=== PATIENT | female | born 1995 | race Caucasian/White ===

== ENCOUNTER 2022-03-17 08:30 | Outpatient (CLI) | payer BC, SELFPAY | END 2022-03-17 08:31 | disposition home or self-care (01) | LOC: AMB 03-19 09:33 | PROVIDERS: PCP Nurse Practitioner Family; Visit Provider Emergency Medicine | DX: R06.09 Other forms of dyspnea (principal) | CPT/HCPCS: A0425; A0427 ==

== ENCOUNTER 2022-03-17 09:15 | Emergency (ER) | payer BC, SELFPAY ==
[2022-03-17] VITALS (19 sets, daily range): BP systolic 102–125; BP diastolic 64–80; PULSE 64–76; RESP 20; TEMP 37.1; O2SAT 97–100
--- NOTE | 2022-03-17 09:47 | CRLHL7_ITS ---
For Patients: As a result of the Century Cures Act, medical imaging exams and procedure reports are released immediately into your electronic medical record. You may view this report before your referring provider. If you have questions, please contact your health care provider. INDICATION: Shortness of breath TECHNIQUE: Chest 1 view COMPARISON: None FINDINGS: Cardiovascular and mediastinum: Heart size and vasculature are normal in caliber and appearance. Lungs and pleural spaces: Lungs are clear. No sign of infiltrate or mass. No sign of pleural effusion. No pneumothorax. Bones and soft tissues: No significant findings. IMPRESSION: No acute findings. Dictated by Vern Das MD @ 03/17/2022 10:25:45 AM (Electronically Signed)
[2022-03-17 10:32] LABS: HCG Qualitative* Negative (Negative)
[2022-03-17 10:32] LABS: Basophils Absolute Auto 0.01 K/uL (0.00-0.30); Basophils Percent Auto 0.2 % (0.0-3.0); Eosinophils Absolute Auto 0.02 K/uL (0.00-0.50); Eosinophils Percent Auto 0.3 % (0.0-7.0); Hematocrit 40.3 % (33.0-51.0); Hemoglobin* 13.9 gm/dL (12.0-16.0); Immature Granulocytes Abs Auto 0.01 K/uL (0.00-0.30); Immature Granulocytes Pct Auto 0.2 %; Lymphocytes Absolute Auto 1.42 K/uL (0.90-2.90); Lymphocytes Percent Auto 21.8 % (20-44); Mean Corpuscular HGB Conc 35 gm/dL (32-36); Mean Corpuscular Hemoglobin 29 pg (26-34); Mean Corpuscular Volume 85 fL (80-100); Monocytes Percent Auto 7.1 % (0.0-11.0); Neutrophils Absolute Auto 4.59 K/uL (1.7-7.0); Neutrophils Percent Auto 70.4 % (42.0-72.0); Platelet Count* 172 K/uL (140-440); RDW Coefficient of Variation % 11.4 % (11.5-15.5); Red Blood Count 4.73 m/uL (4.00-5.20); White Blood Count* 6.51 K/uL (4.50-11.00)
[2022-03-17 10:35] LABS: Slide Review Reflex No
[2022-03-17 10:50] LABS: Chloride* 105 mmol/L (96-114); Potassium* 4.3 mmol/L (3.6-5.1); Sodium* 141 mmol/L (135-149)
[2022-03-17 10:52] LABS: Creatinine* 0.6 mg/dL (0.5-1.5); Estimated Glomerular Filt Rate 126 ml/min; INR 1.02 (0.91-1.10)
[2022-03-17 10:53] LABS: Blood Urea Nitrogen* 17 mg/dL (5-24); Calcium* 9.5 mg/dL (8.4-10.6); Carbon Dioxide* 29 mmol/L (20-32); Glucose* 98 mg/dL (60-115)
[2022-03-17 10:57] LABS: D Dimer Quantitative* < 0.27 ug/ml (0.00-0.50)
[2022-03-17 11:13] LABS: NT Pro B Type NatriureticPept* 51 pg/mL
--- NOTE | 2022-03-17 12:37 | ED.NURSE ---
respiratory support technician in room for Holter monitor setup.
--- NOTE | 2022-03-17 14:22 | ED_ITS ---
HPI - General Adult General Date Seen: 03/17/22 Chief complaint: Chest Pain Stated complaint: Heart issue Time Seen by Provider: 03/17/22 09:37 Source: patient, EMS, RN notes reviewed and old records reviewed Mode of arrival: EMS Limitations: no limitations History of Present Illness HPI narrative: Patient is a 26-year-old who arrives via EMS after having palpitations and near syncope while at work. She says that she was in a meeting, sitting calmly, when she developed sensation of heart pounding and racing, and feeling faint. Initially she did not tell me this, but it sounds as if she has had similar symptoms for quite some time, and has had at least some degree of workup for this previously. Initially, she told me that she had about 5 minutes of severe symptoms and then about 30 minutes before she felt back to normal. On EMS arrival, they noted normal vital signs and normal sinus rhythm on EKG. She did have T-wave inversions noted anteriorly, without previous EKG available for comparison. She has a history of pulmonary artery dilation, she tells me she has been followed at the [facility] and more recently [facility] for this. She has had multiple stress test, echo cardiograms, Holter monitor. She says she has a history of hypotension with exercise, but is able to exercise within reason without difficulty. She has never had syncope with exercise. She occasionally gets a sharp pain in her chest but today just had pain between her shoulder blades with this episode. That is now resolved. She denies any recent nausea or vomiting, fever, or other illness. No lower extremity swelling or pain. No history of PE or DVT. She does not take control pills. Here today with her . Related Data Home Medications Medication Instructions Recorded Confirmed No Known Home Medications 03/17/22 03/17/22 Allergies Allergy/AdvReac Type Severity Reaction Status Date / Time No Known Drug Allergies Allergy Verified 03/17/22 09:25 Review of Systems Status of ROS: Reports: 10 or more systems reviewed and unremarkable except as noted in History and below PFSH PFS Social History Smoking Status: Never smoker Do you use any of these nicotine containing products: None Second hand tobacco smoke exposure: No How often do you have a drink containing alcohol: monthly or less How often do you have six or more drinks on one occasion: Never AUDIT-C Alcohol total score: 1 Non-prescribed substance use: denies use Exam Narrative: Exam Narrative: Vital signs as noted above. In general, an alert, well-appearing patient. She is thin, breathing easily. Head: Normocephalic, atraumatic. Eyes: Pupils are equal reactive. Extraocular movements are full. Conjunctivae are normal. ENT: Mucous membranes are moist. Throat is normal. Neck: Supple without lymphadenopathy. Heart: Regular rate and rhythm. She has a diastolic murmur heard at the left sternal border. Lungs: Clear bilaterally. No increased work of breathing, crackles or wheezes. Abdomen: Soft and nontender. No organomegaly. Extremities: Well perfused. No edema. No calf tenderness. Pulses intact. Neurologic: Patient is alert and oriented to person and place. Speech is fluent. Face is symmetric. Moves all extremities equally. Affect: Normal. Skin: Warm and dry. Well perfused. Const: Vital Signs, click to edit/add: Vital Signs - 24 hr 03/17/22 09:17 03/17/22 09:38 03/17/22 09:45 Temperature 98.7 F Pulse Rate 70 72 Pulse Rate [Pulse Oximeter] 71 Respiratory Rate 20 Blood Pressure Blood Pressure [Le ft Upper Arm] 125/80 Pulse Oximetry 99 100 [facility] 03/17/22 10:00 03/17/22 10:01 03/17/22 10:15 Temperature Pulse Rate 69 75 70 Pulse Rate [Pulse Oximeter] Respiratory Rate Blood Pressure 106/70 Blood Pressure [Le ft Upper Arm] Pulse Oximetry 100 100 97 [facility] 03/17/22 10:30 03/17/22 10:32 03/17/22 10:33 Temperature Pulse Rate 67 65 68 Pulse Rate [Pulse Oximeter] Respiratory Rate Blood Pressure 117/78 Blood Pressure [Le ft Upper Arm] Pulse Oximetry 99 99 99 [facility] 03/17/22 10:45 03/17/22 11:00 03/17/22 11:02 Temperature Pulse Rate 65 76 65 Pulse Rate [Pulse Oximeter] Respiratory Rate Blood Pressure 108/65 Blood Pressure [Le ft Upper Arm] Pulse Oximetry 98 98 98 [facility] 03/17/22 11:15 03/17/22 11:30 03/17/22 11:32 Temperature Pulse Rate 64 66 66 Pulse Rate [Pulse Oximeter] Respiratory Rate Blood Pressure 102/64 Blood Pressure [Le ft Upper Arm] Pulse Oximetry 98 99 98 Oxygen Delivery Me thod 03/17/22 11:45 03/17/22 12:00 03/17/22 12:01 Temperature Pulse Rate 73 65 69 Pulse Rate [Pulse Oximeter] Respiratory Rate Blood Pressure 108/69 Blood Pressure [Le ft Upper Arm] Pulse Oximetry 98 98 98 Oxygen Delivery Me thod 03/17/22 12:50 Temperature 98.7 F Pulse Rate Pulse Rate [Pulse Oximeter] 71 Respiratory Rate 20 Blood Pressure Blood Pressure [Le ft Upper Arm] 125/80 Pulse Oximetry Oxygen Delivery Me thod Documenting provider has reviewed patient's vital signs: yes Course Course Hospital Course: Patient was maintained on the monitor on O2. She had an EKG here which showed a normal sinus rhythm, ventricular rate of 71 beats per minute. She had T-wave inversions in V in V4, flat in V2. No significant change compared to the ambulance EKG. No ST segment elevation or depression. No previous EKG available for comparison. No arrhythmias noted on monitor here. She had a PA of the chest which by my review was unremarkable. Final radiology report likewise unremarkable. Point of care troponin was 0. Metabolic panel showed normal electrolytes, BUN and creatinine. BNP was 51. test was negative. CBC showed a white count of 6.5, hemoglobin of 13.9. D-dimer was less than 0.27. INR was 1. I did speak with the research laboratory manager on-call at [facility], Dr. Cardozo. He says that she recently had an extensive workup there which was unremarkable. He did not feel that her underlying pulmonary stenosis and resultant pulmonary artery dilation put her at any increased risk for malignant arrhythmias or supraventricular tachycardia for that matter. He does feel it is reasonable to let her go home. I had her set up for a Holter monitor. In talking with her a little more after her workup here, she expresses frustration that no one can figure out what this is. It sounds like this actually has been ongoing for quite some time and she probably has been seen for these same kind of symptoms in the past. She says that she had left a message for [facility] about this sensation of feeling her heart pounding and lightheadedness in the past couple of weeks and had not heard back. For now I have recommended that she complete the Holter and follow up with Lisa, if they feel that it would be best for her to follow back up with [facility] they can discuss that with her. In the meantime, if she were to have syncope I would recommend return to the emergency department. Otherwise, outpatient follow-up as planned. Vital Signs Vital signs: Initial Vital Signs Temperature 98.7 F 03/17/22 09:17 Temperature Source Temporal Artery Scan 03/17/22 09:17 Pulse Rate 71 03/17/22 09:17 Pulse Rhythm 03/17/22 09:17 Respiratory Rate 20 03/17/22 09:17 Blood Pressure 125/80 03/17/22 09:17 Blood Pressure Mean 95 03/17/22 09:17 Blood Pressure Position Sitting 03/17/22 09:17 Pulse Oximetry 99 03/17/22 09:17 Oxygen Delivery Method 03/17/22 09:17 Vital Signs Temperature 98.7 F 03/17/22 09:17 Pulse Rate 71 03/17/22 09:17 Respiratory Rate 20 03/17/22 09:17 Blood Pressure 125/80 03/17/22 09:17 Pulse Oximetry 99 03/17/22 09:17 Oxygen Delivery Method 03/17/22 09:17 Temperature 98.7 F 03/17/22 12:50 Pulse Rate 71 03/17/22 12:50 Respiratory Rate 20 03/17/22 12:50 Blood Pressure 125/80 03/17/22 12:50 Pulse Oximetry 98 03/17/22 12:01 Oxygen Delivery Method 03/17/22 09:17 Medical Decision Making Lab Data Labs: Lab Results 03/17/22 03/17/22 03/17/22 Range/Units 09:20 10:15 10:15 WBC (4.50-11.00) K/uL RBC (4.00-5.20) m/uL Hgb (12.0-16.0) gm/dL Hct (33.0-51.0) % MCV (80-100) fL MCH (26-34) pg MCHC (32-36) gm/dL RDW Coeff of Sav (11.5-15.5) % Plt Count (140-440) K/uL Neut % (Auto) (42.0-72.0) % Lymph % (Auto) (20-44) % [place] % (Auto) (0.0-11.0) % Eos % (Auto) (0.0-7.0) % Baso % (Auto) (0.0-3.0) % Neut # (Auto) (1.7-7.0) K/uL Lymph # (Auto) (0.90-2.90) K/uL [place] # (Auto) (0.00-0.90) K/UL Eos # (Auto) (0.00-0.50) K/uL Baso # (Auto) (0.00-0.30) K/uL INR (0.91-1.10) D-Dimer Quant (PE/DVT) < 0.27 (0.00-0.50) ug/ml Sodium 141 (135-149) mmol/L Potassium 4.3 (3.6-5.1) mmol/L Chloride 105 (96-114) mmol/L Carbon Dioxide 29 (20-32) mmol/L BUN 17 (5-24) mg/dL Creatinine 0.6 (0.5-1.5) mg/dL Estimated Creat Clear 35.30 Estimated GFR 126 ml/min Glucose 98 (60-115) mg/dL Calcium 9.5 (8.4-10.6) mg/dL NT-Pro-B Natriuret Pep 51 pg/mL HCG, Qual Negative (Negative) POC Troponin I (0.01-0.04) ng/ml 03/17/22 03/17/22 03/17/22 Range/Units 10:15 10:17 10:30 WBC 6.51 (4.50-11.00) K/uL RBC 4.73 (4.00-5.20) m/uL Hgb 13.9 (12.0-16.0) gm/dL Hct 40.3 (33.0-51.0) % MCV 85 (80-100) fL MCH 29 (26-34) pg MCHC 35 (32-36) gm/dL RDW Coeff of Sav 11.4 L (11.5-15.5) % Plt Count 172 (140-440) K/uL Neut % (Auto) 70.4 (42.0-72.0) % Lymph % (Auto) 21.8 (20-44) % [place] % (Auto) 7.1 (0.0-11.0) % Eos % (Auto) 0.3 (0.0-7.0) % Baso % (Auto) 0.2 (0.0-3.0) % Neut # (Auto) 4.59 (1.7-7.0) K/uL Lymph # (Auto) 1.42 (0.90-2.90) K/uL [place] # (Auto) 0.50 (0.00-0.90) K/UL Eos # (Auto) 0.02 (0.00-0.50) K/uL Baso # (Auto) 0.01 (0.00-0.30) K/uL INR 1.02 (0.91-1.10) D-Dimer Quant (PE/DVT) (0.00-0.50) ug/ml Sodium (135-149) mmol/L Potassium (3.6-5.1) mmol/L Chloride (96-114) mmol/L Carbon Dioxide (20-32) mmol/L BUN (5-24) mg/dL Creatinine (0.5-1.5) mg/dL Estimated Creat Clear Estimated GFR ml/min Glucose (60-115) mg/dL Calcium (8.4-10.6) mg/dL NT-Pro-B Natriuret Pep pg/mL HCG, Qual (Negative) POC Troponin I 0.00 L (0.01-0.04) ng/ml Discharge Plan Discharge Clinical Impression: Palpitations, Near syncope Patient Disposition: Home, Self-Care Condition: Stable Instructions: Heart Palpitations (ED), Near Syncope (ED) Additional Instructions: Follow-up with primary care after Holter monitor. Return at any time for fainting, significant chest pain, shortness of breath, or other worsening. Prescriptions: No Action No Known Home Medications Follow Up/Referrals: Genie Serrano, GERMAIN, MARINE ELECTRICIAN APPRENTICE [Primary Care Provider] - Stand Alone Forms: [facility] Info Instructions
== END 2022-03-17 12:45 | disposition home or self-care (01) ==
PROVIDERS: Emergency Provider Emergency Medicine; PCP Nurse Practitioner Family
DX: R00.2 Palpitations (principal); R55 Syncope and collapse
CPT/HCPCS: 36415; 71045; 80048; 83880; 84484; 84703; 85025; 85379; 85610; 93005; 93225; 93226; 94761; 99284; 99285

== ENCOUNTER 2022-04-21 07:21 | Outpatient (CLI) | payer BC, SELFPAY ==
--- NOTE | 2022-04-21 07:15 | CRLHL7_ITS ---
For Patients: As a result of the Century Cures Act, medical imaging exams and procedure reports are released immediately into your electronic medical record. You may view this report before your referring provider. If you have questions, please contact your health care provider. INDICATION: Female infertility COMPARISON: none TECHNIQUE: 2D krishnamurthy scale and color Doppler images were acquired of the pelvis using a transabdominal and transvaginal approach. FINDINGS: Sonographic images demonstrate a normal size and smooth outer contour of the uterus. Uterus measures cm in length by cm in AP diameter by cm in transverse dimension. The myometrium has a normal uniform echotexture. The endometrial lining measures 13 mm in composite thickness. 5 x 5 x 7 millimeter cervical nabothian cyst is present. The right ovary measures 3.3 x 1.8 x 1.6 cm in size and the left ovary measures 3.6 x 2.2 x 1.8 cm. The ovaries demonstrate normal arterial and venous blood flow on color Doppler analysis. There are no suspicious fluid collections within the cul-de-sac. IMPRESSION: Endometrial thickness 13 millimeters. No endometrial fluid or uterine fibroid. Normal ovaries. Normal ovarian follicles are present. Dictated by Vern Das MD @ 04/21/2022 10:16:27 AM (Electronically Signed)
== END 2022-04-21 07:22 | disposition home or self-care (01) ==
LOC: US 07:24
PROVIDERS: PCP Nurse Practitioner Family; Visit Provider Nurse Practitioner Family
DX: N97.9 Female infertility, unspecified (principal); R93.89 Abnormal findings on diagnostic imaging of other specified body structures
CPT/HCPCS: 76830; 76856

== ENCOUNTER 2022-05-11 14:05 | Emergency (ER) | payer BC, SELFPAY ==
[2022-05-11] VITALS (11 sets, daily range): BP systolic 93–116; BP diastolic 54–73; PULSE 61–75; RESP 18; TEMP 36.8; O2SAT 96–100; BMI 20.5
--- NOTE | 2022-05-11 14:20 | ED.NAVMDI ---
HPI - Nausea/Vomiting/Diarrhea General Time Seen by Provider: 14:20 Date Seen: 05/11/22 Chief complaint: Nausea/Vomiting Stated complaint: Vomiting, 6 weeks Time Seen by Provider: 05/11/22 14:20 Source: patient and RN notes reviewed Mode of arrival: ambulatory Limitations: no limitations History of Present Illness HPI Narrative: Patient is a very pleasant 26-year-old at approximately 6 weeks of based on LMP who comes to the emergency room with vomiting and diarrhea. Patient notes that she has been feeling very well and has not had any problems with morning sickness. She states she started vomiting early this morning and has continued throughout the day. She has been unable to keep any fluids or food down. She has also had diarrhea with this. 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 She is otherwise healthy and denies a fever cough or belly pain. She does states that she had been experiencing cramping in the lower pelvis earlier in the week but that has since stopped. She denies any vaginal bleeding. She has not had any dysuria or hematuria. Patient has not yet had her OB check. She states that is with Dr. Steele on June 03. Associated nausea: Yes Related Data Home Medications Medication Instructions Recorded Confirmed No Known Home Medications 03/17/22 03/17/22 Allergies Allergy/AdvReac Type Severity Reaction Status Date / Time No Known Drug Allergies Allergy Verified 03/17/22 09:25 Review of Systems Status of ROS: Reports: 10 or more systems reviewed and unremarkable except as noted in History and below Const: Denies: fever or chills ENMT: Denies: throat pain Cardio: Denies: chest pain, swelling of feet/ankles or shortness of breath with exertion Resp: Denies: shortness of breath or cough GI: Reports: nausea, vomiting and diarrhea; Denies: abdominal pain : Denies: painful urination Musculo: Denies: back pain Neuro: Denies: headache PFSH PFSH Social History Smoking Status: Never smoker Do you use any of these nicotine containing products: None Second hand tobacco smoke exposure: No How often do you have a drink containing alcohol: monthly or less How often do you have six or more drinks on one occasion: Never AUDIT-C Alcohol total score: 1 Non-prescribed substance use: denies use Exam Narrative: Exam Narrative: Alert and oriented. Nontoxic in appearance. External ears eyes nose clear. Oral cavity with tacky mucous membranes. Heart with regular rate and rhythm and lungs are clear bilaterally. Abdomen soft nontender Lower extremities upper extremities and moving without difficulty. Const: Vital Signs, click to edit/add: Vital Signs - 24 hr 05/11/22 14:15 05/11/22 15:14 05/11/22 15:15 Temperature 98.3 F Pulse Rate 61 64 Pulse Rate [Pulse Oximeter] 72 Respiratory Rate 18 Blood Pressure Blood Pressure [Ri ght Upper Arm] 116/73 Pulse Oximetry 100 100 100 Oxygen Delivery Me thod Room Air 05/11/22 15:30 05/11/22 15:32 05/11/22 15:45 Temperature Pulse Rate 64 63 67 Pulse Rate [Pulse Oximeter] Respiratory Rate Blood Pressure 97/58 L Blood Pressure [Ri ght Upper Arm] Pulse Oximetry 100 100 100 Oxygen Delivery Me thod 05/11/22 16:00 05/11/22 16:02 05/11/22 16:15 Temperature Pulse Rate 65 62 65 Pulse Rate [Pulse Oximeter] Respiratory Rate Blood Pressure 94/54 L Blood Pressure [Ri ght Upper Arm] Pulse Oximetry 100 96 100 Oxygen Delivery Me thod 05/11/22 16:30 05/11/22 16:32 Temperature Pulse Rate 75 69 Pulse Rate [Pulse Oximeter] Respiratory Rate Blood Pressure 93/56 L Blood Pressure [Ri ght Upper Arm] Pulse Oximetry 100 100 Oxygen Delivery Me thod Documenting provider has reviewed patient's vital signs: yes Course Course Hospital Course: At this time will place IV and give 2 L normal saline and Zofran 4 mg IV. Differential diagnosis does include morning sickness or hyper emesis however, with the diarrhea we cannot exclude other causes such as viral gastroenteritis, urinary tract infection. Will collect a urine, CBC and comprehensive panel and quantitative hCG as a baseline. Vital Signs Vital signs: Initial Vital Signs Temperature 98.3 F 05/11/22 14:15 Temperature Source Temporal Artery Scan 05/11/22 14:15 Pulse Rate 72 05/11/22 14:15 Respiratory Rate 18 05/11/22 14:15 Blood Pressure 116/73 05/11/22 14:15 Blood Pressure Mean 87 05/11/22 14:15 Blood Pressure Position Sitting 05/11/22 14:15 Pulse Oximetry 100 05/11/22 14:15 Vital Signs Temperature 98.3 F 05/11/22 14:15 Pulse Rate 72 05/11/22 14:15 Respiratory Rate 18 05/11/22 14:15 Blood Pressure 116/73 05/11/22 14:15 Pulse Oximetry 100 05/11/22 14:15 Temperature 98.3 F 05/11/22 14:15 Pulse Rate 69 05/11/22 16:32 Respiratory Rate 18 05/11/22 14:15 Blood Pressure 93/56 L 05/11/22 16:32 Pulse Oximetry 100 05/11/22 16:32 Oxygen Delivery Method 05/11/22 15:14 MDM - Nausea/Vomiting/Diarrhea MDM Narrative Medical decision making narrative: 1. Vomiting and diarrhea -I am wondering if this is more viral rather than related. Patient has had ongoing vomiting since early this morning. 3+ urinary ketones but reassuring white count and CRP is normal. Isolated elevation of total bilirubin to 2.0 but no other LFTs appear to be of it affected. 2 L of normal saline given as well as Zofran 4 mg IV. Patient noted to be feeling better and able to tolerate p.o.. Patient discharged home with Zofran. 2. -patient had some cramping earlier in the week but no cramping to today. No vaginal bleeding. HCG quantitative today 5315.90 3. Disposition-home at this time. Return for worsening symptoms and as needed. Medical Records Attestation: I reviewed the patient's medical records. Lab Data Attestation: I reviewed the patient's lab results. Labs: Lab Results 05/11/22 05/11/22 05/11/22 Range/Units 14:50 15:00 15:00 WBC 8.74 (4.50-11.00) K/uL RBC 5.04 (4.00-5.20) m/uL Hgb 14.8 (12.0-16.0) gm/dL Hct 43.3 (33.0-51.0) % MCV 86 (80-100) fL MCH 29 (26-34) pg MCHC 34 (32-36) gm/dL RDW Coeff of Sav 11.7 (11.5-15.5) % Plt Count 148 (140-440) K/uL Neut % (Auto) 92.0 H (42.0-72.0) % Lymph % (Auto) 5.0 L (20-44) % [place] % (Auto) 2.7 (0.0-11.0) % Eos % (Auto) 0.1 (0.0-7.0) % Baso % (Auto) 0.1 (0.0-3.0) % Neut # (Auto) 8.00 H (1.7-7.0) K/uL Lymph # (Auto) 0.40 L (0.90-2.90) K/uL [place] # (Auto) 0.20 (0.00-0.90) K/UL Eos # (Auto) 0.01 (0.00-0.50) K/uL Baso # (Auto) 0.01 (0.00-0.30) K/uL Sodium 137 (135-149) mmol/L Potassium 4.1 (3.6-5.1) mmol/L Chloride 104 (96-114) mmol/L Carbon Dioxide 24 (20-32) mmol/L BUN 13 (5-24) mg/dL Creatinine 0.5 (0.5-1.5) mg/dL Estimated Creat Clear 163.38 Estimated GFR 132 ml/min Glucose 97 (60-115) mg/dL Calcium 9.2 (8.4-10.6) mg/dL Total Bilirubin 2.0 H (0.1-1.5) mg/dL AST 25 (12-35) U/L ALT 21 (4-35) U/L Alkaline Phosphatase 56 (40-150) U/L Total Protein 8.4 H (6.0-8.3) g/dL Albumin 4.8 (3.3-5.0) g/dL HCG, Quant 5315.90 mIU/mL Urine Color Yellow (Yellow) Urine Appearance Clear (Clear) Urine pH 5.5 (5.0-8.5) Ur Specific [place] >= 1.030 (1.000-1.030) Urine Protein 1+ A (Negative) Urine Glucose (UA) Negative (Negative) Urine Ketones 3+ A (Negative) Urine Blood Negative (Negative) Urine Nitrite Negative (Negative) Urine Bilirubin Negative (Negative) Urine Urobilinogen 0.2 (0.2-1.0) Ur Leukocyte Esterase Negative (Negative) Urine RBC 0-2 (0-2) Urine WBC 0-2 (0-5) Ur Squamous Epith Cells Few (None-Few) Amorphous Sediment Few A (None) Urine Bacteria Few A (None) Urine Mucus Few A (None) Discharge Plan Discharge Clinical Impression: Nausea vomiting and diarrhea, Early stage of Patient Disposition: Home, Self-Care Condition: Improved Additional Instructions: Zofran as needed for nausea. This will be given to you via [employer] machine. Push fluids as much as possible. Follow-up with primary MD for recheck. Return to the emergency room as needed. Prescriptions: No Action No Known Home Medications Follow Up/Referrals: Genie Serrano, GERMAIN, PIPE SUPERVISOR [Primary Care Provider] - Stand Alone Forms: [employer] Info Instructions
[2022-05-11 14:59] LABS: Appearance Urine Clear (Clear); Bilirubin Urine Negative (Negative); Blood Urine Negative (Negative); Color Urine Yellow (Yellow); Glucose Urine Negative (Negative); Ketones Urine 3+ (Negative); Leukocyte Esterase Urine Negative (Negative); Nitrite Urine Negative (Negative); Protein Urine 1+ (Negative); Specific Gravity Urine >= 1.030 (1.000-1.030); Urobilinogen Urine 0.2 (0.2-1.0); pH Urine 5.5 (5.0-8.5)
[2022-05-11] MEDS: ONDANSETRON 2 MG/ML inj 4 MG IVP (15:05)
[2022-05-11] MEDS: 0.9 % SODIUM CHLORIDE 1000 ml 1,000 ML IV ×2 (15:06→15:36)
[2022-05-11 15:14] LABS: Basophils Absolute Auto 0.01 K/uL (0.00-0.30); Basophils Percent Auto 0.1 % (0.0-3.0); Eosinophils Absolute Auto 0.01 K/uL (0.00-0.50); Eosinophils Percent Auto 0.1 % (0.0-7.0); Hematocrit 43.3 % (33.0-51.0); Hemoglobin* 14.8 gm/dL (12.0-16.0); Immature Granulocytes Abs Auto 0.01 K/uL (0.00-0.30); Immature Granulocytes Pct Auto 0.1 %; Mean Corpuscular HGB Conc 34 gm/dL (32-36); Mean Corpuscular Hemoglobin 29 pg (26-34); Mean Corpuscular Volume 86 fL (80-100); Monocytes Percent Auto 2.7 % (0.0-11.0); Platelet Count* 148 K/uL (140-440); RDW Coefficient of Variation % 11.7 % (11.5-15.5); Red Blood Count 5.04 m/uL (4.00-5.20); White Blood Count* 8.74 K/uL (4.50-11.00)
[2022-05-11 15:19] LABS: Slide Review Reflex No
[2022-05-11 15:22] LABS: Albumin* 4.8 g/dL (3.3-5.0); Chloride* 104 mmol/L (96-114); Potassium* 4.1 mmol/L (3.6-5.1); Sodium* 137 mmol/L (135-149)
[2022-05-11 15:24] LABS: RBC Urine 0-2 (0-2); WBC Urine 0-2 (0-5)
[2022-05-11 15:24] LABS: Creatinine* 0.5 mg/dL (0.5-1.5); Est. Creatinine Clearance* 163.38; Estimated Glomerular Filt Rate 132 ml/min
[2022-05-11 15:25] LABS: Alanine Aminotransferase* 21 U/L (4-35); Alkaline Phosphatase* 56 U/L (40-150); Aspartate Amino Transferase* 25 U/L (12-35); Blood Urea Nitrogen* 13 mg/dL (5-24); Calcium* 9.2 mg/dL (8.4-10.6); Carbon Dioxide* 24 mmol/L (20-32); Glucose* 97 mg/dL (60-115); Total Protein* 8.4 g/dL (6.0-8.3)
[2022-05-11 15:25] LABS: Amorphous Sediment Urine Few; Bacteria Urine Few; Mucus Urine Few; Squamous Epithelial Cell Urine Few (None-Few)
--- NOTE | 2022-05-11 15:46 | ED.NURSE ---
is getting 2nd liter. sprite and saltines given.
== END 2022-05-11 16:50 | disposition home or self-care (01) ==
PROVIDERS: Emergency Provider Family Medicine; PCP Nurse Practitioner Family
DX: O21.9 Vomiting of pregnancy, unspecified (principal)
CPT/HCPCS: 36415; 80053; 81001; 84702; 85025; 87086; 96361; 96374; 99283; 99284; J2405; J7030

== ENCOUNTER 2022-06-02 09:05 | Outpatient (CLI) | payer BC, SELFPAY ==
--- NOTE | 2022-06-02 09:15 | CRLHL7_ITS ---
For Patients: As a result of the Century Cures Act, medical imaging exams and procedure reports are released immediately into your electronic medical record. You may view this report before your referring provider. If you have questions, please contact your health care provider. INDICATION: First trimester scan, establish dates. COMPARISON: None. TECHNIQUE: Real-time krishnamurthy-scale imaging of the pelvis was performed. FINDINGS: Sonographic imaging demonstrates a single living intrauterine gestation. The embryo demonstrates a regular cardiac rate measuring 179-185 beats per minute. The embryo`s crown-rump length measurement of 1.9 cm corresponds to a gestational age of 8 weeks 3 days with a sonographic due date of 01/09/2023. There is a normal-appearing yolk sac. There are no gross abnormalities noted within the embryo at this early state of development. The gestational sac has a normal appearance. There is no evidence of a perigestational hemorrhage. The amount of fluid within the sac appears appropriate for gestational age. The cervix is closed. The myometrium appears normal. The ovaries are of normal size. Corpus luteal cyst left ovary. Moderate pelvic free fluid. IMPRESSION: Single living intrauterine with sonographic gestational age 8 weeks 3 days and sonographic due date 01/09/2023. Corpus luteal cyst left ovary measuring 2.4 cm. Moderate pelvic free fluid. Dictated by Vern Das MD @ 06/02/2022 10:47:59 AM (Electronically Signed)
== END 2022-06-02 09:06 | disposition home or self-care (01) ==
LOC: US 09:05
PROVIDERS: PCP Nurse Practitioner Family; Visit Provider Registered Nurse
DX: Z34.91 Encounter for supervision of normal pregnancy, unspecified, first trimester (principal); Z3A.09 9 weeks gestation of pregnancy
CPT/HCPCS: 76817; 86703; 86803; 86850; 86900; 86901; 87340

== ENCOUNTER 2022-06-02 10:14 | Outpatient (CLI) | payer BC, SELFPAY | END 2022-06-02 10:15 | disposition home or self-care (01) | PROVIDERS: PCP Nurse Practitioner Family; Visit Provider Advanced Practice Midwife | DX: Z34.91 Encounter for supervision of normal pregnancy, unspecified, first trimester (principal); Z3A.09 9 weeks gestation of pregnancy | CPT/HCPCS: 0353U; 86592; 86703; 86762; 86787; 86803; 86850; 86900; 86901; 87086; 87340 ==

== ENCOUNTER 2022-09-30 11:20 | Outpatient (CLI) | payer BC, SELFPAY ==
[2022-09-30 11:37] VITALS: BP 119/73; PULSE 74; PULSE 78; O2SAT 100
[2022-09-30 12:15] LABS: Appearance Urine Slightly Cloudy (Clear); Bilirubin Urine Negative (Negative); Blood Urine 3+ (Negative); Color Urine Yellow (Yellow); Glucose Urine Negative (Negative); Ketones Urine Negative (Negative); Leukocyte Esterase Urine Negative (Negative); Nitrite Urine Negative (Negative); Protein Urine Negative (Negative); Urobilinogen Urine 0.2 (0.2-1.0)
[2022-09-30 12:25] LABS: RBC Urine 25-50 (0-2); WBC Urine 0-2 (0-5)
--- NOTE | 2022-09-30 12:59 | P.OBLDTN_ITS ---
OB - Triage/Final Diagnosis Visit Information Date Seen: 09/30/22 Date of evaluation: 09/30/22 Narrative: The patient is a 27 year old 1 para 0 at 26.1 weeks gestation by LMP, who presents with pelvic discomfort. She went for a run this morning. After her run she had some cramping. This is something that has happened previously but has resolved after rest and hydration. It did not go away after 4-5 hours. She denies bleeding or leaking fluid and is appreciating good movement. She has had loose stools this morning and feels that the cramping could be bowel related. It is in her low abdomen in the middle and on both side. Denies in her back and feels that it is deeper in her abdomen and less at the surface. Her abdomen was palpated by the RN during some of this cramping and it palpated soft. She feels that she is well hydrated and is eating adequately. After a conversation, education and informed consent a SVE was performed. Her cervix was found to be mid position, closed, and ballotable. Encouraged her to continue to increase hydration and to be seen again with changes in her symptoms, concerns of dehydration or other concerns. A UA was sent and has RBCs but otherwise unremarkable. Will send for a culture. Evaluation Cervical dilation (cm): 0 Laboratory results: Laboratory Tests 09/30/22 09/30/22 Range/Units 12:45 12:09 Urine Color Yellow (Yellow) Urine Appearance Slightly Cloudy A (Clear) Urine pH 7.0 (5.0-8.5) Ur Specific [place] 1.020 (1.000-1.030) Urine Protein Negative (Negative) Urine Glucose (UA) Negative (Negative) Urine Ketones Negative (Negative) Urine Blood 3+ A (Negative) Urine Nitrite Negative (Negative) Urine Bilirubin Negative (Negative) Urine Urobilinogen 0.2 (0.2-1.0) Ur Leukocyte Esterase Negative (Negative) Urine RBC 25-50 A (0-2) Urine WBC 0-2 (0-5) Ur Squamous Epith Cells None (None-Few) Urine Bacteria None (None) Lab Acknowledgement Test Added Vital signs: Vital Signs - 24 hr 09/30/22 11:37 Pulse Rate 74 Blood Pressure 119/73 Pulse Oximetry 100 Fetus (Single) Heart Rate Baseline: 140 Sales Service Professional Variability: Moderate (6-25) Monitor Accelerations: Present Monitor Decelerations: None
--- NOTE | 2022-09-30 13:08 | PC.OBNST ---
NST Note NST Note Start: 09/30/22 11:40 Freq: ONCE Status: Active Protocol: Document 09/30/22 12:35 WK (Rec: 09/30/22 13:08 WK [id number]) NST Note 1 Para (# of births) 0 EDC 01/05/23 Gestational Age In Weeks & Days 26 Weeks & 1 Days Patient Presented with Complaint(s) of Contractions/cramping Appropriate for Gestational Age Yes RN Jessica RNC Date 09/30/22 Appropriate for Gestational Age Yes RN Bee RN Date 09/30/22 OB NST charge Yes Complete NST Note via Write Note Yes The provider's electronic signature indicates the NST is reactive/appropriate for gestational age. *Note to provider: If an addendum is required, open the patient's chart and click on the note under the Nurse/Allied Health tab.
== END 2022-09-30 12:35 | disposition home or self-care (01) ==
LOC: OB OUT 11:23 → OB 11:24
PROVIDERS: PCP Nurse Practitioner Family; Visit Provider Advanced Practice Midwife
DX: O47.02 False labor before 37 completed weeks of gestation, second trimester (principal); Z3A.26 26 weeks gestation of pregnancy
CPT/HCPCS: 59025; 81003; 81015; 87086; 99213

== ENCOUNTER 2022-10-14 09:33 | Outpatient (CLI) | payer BC, SELFPAY | END 2022-10-14 09:34 | disposition home or self-care (01) | LOC: NFLDREF 09:34 | PROVIDERS: PCP Nurse Practitioner Family; Visit Provider Advanced Practice Midwife | DX: Z34.93 Encounter for supervision of normal pregnancy, unspecified, third trimester (principal) | CPT/HCPCS: 86592; 86850; J2791 ==

== ENCOUNTER 2022-10-14 10:16 | Outpatient (CLI) | payer BC, SELFPAY ==
--- NOTE | 2022-10-14 10:45 | CRLHL7_ITS ---
For Patients: As a result of the Century Cures Act, medical imaging exams and procedure reports are released immediately into your electronic medical record. You may view this report before your referring provider. If you have questions, please contact your health care provider. INDICATION: Third trimester scan, evaluate growth. COMPARISON: 06.02.22 TECHNIQUE: Real time krishnamurthy scale imaging of the fetus was performed. FINDINGS: Sonographic imaging demonstrates a single living intrauterine gestation. Fetus demonstrates a regular cardiac rate of 139 beats per minute. Fetus has a vertex position. The placenta lies posterior. Amniotic fluid volume appears normal and there is a single deepest vertical pocket: 4.1 cm. The estimated weight is 1161gm which lies at the 32nd %. BPD 7th percentile. HC 3rd percentile. AC 65th percentile. FL 14th percentile. The HC/AC ratio measures 1.01 range (1.03-1.22). IMPRESSION: Sonographic gestational age 27 weeks 4 days as sonographic due date of 01/09/2023. Good correlation with dates. Estimated weight 32nd percentile. Abdominal circumference 65th percentile. Dictated by Vern Das MD @ 10/14/2022 12:17:25 PM (Electronically Signed)
== END 2022-10-14 10:17 | disposition home or self-care (01) ==
LOC: US 10:17
PROVIDERS: PCP Nurse Practitioner Family; Visit Provider Advanced Practice Midwife
DX: Z34.92 Encounter for supervision of normal pregnancy, unspecified, second trimester (principal); Z3A.27 27 weeks gestation of pregnancy
CPT/HCPCS: 76816; 86850; J2791

== ENCOUNTER 2022-11-11 07:04 | Outpatient (CLI) | payer BC, SELFPAY ==
--- NOTE | 2022-11-11 07:15 | CRLHL7_ITS ---
For Patients: As a result of the Century Cures Act, medical imaging exams and procedure reports are released immediately into your electronic medical record. You may view this report before your referring provider. If you have questions, please contact your health care provider. INDICATION: Third trimester scan, evaluate growth. measuring small for dates COMPARISON: 10/14/2022 TECHNIQUE: Real time krishnamurthy scale imaging of the fetus was performed. FINDINGS: Sonographic imaging demonstrates a single living intrauterine gestation. Fetus demonstrates a regular cardiac rate of 134 beats per minute. Fetus has a chris breech position. The placenta lies posteriorly. Amniotic fluid volume appears normal and there is a single deepest vertical pocket: 7.0 cm. The estimated weight is 1755gm which lies at the 18th %. On the prior OB ultrasound exam dated 10/14/2022 the estimated weight was at the 32nd%. BPD 14th percentile. HC 6th percentile. AC 29th percentile. FL 17th percentile. The HC/AC ratio measures 1.05 range (0.96-1.16). IMPRESSION: Sonographic gestational age 31 weeks 2 days and sonographic due date of 01/11/2023. Sonographic age is 6 days behind the clinical age. Estimated weight 18th percentile. Abdominal circumference 29th percentile. Dictated by Vern Das MD @ 11/11/2022 11:57:07 AM (Electronically Signed)
== END 2022-11-11 07:05 | disposition home or self-care (01) ==
LOC: US 07:04
PROVIDERS: PCP Nurse Practitioner Family; Visit Provider Advanced Practice Midwife
DX: Z34.03 Encounter for supervision of normal first pregnancy, third trimester (principal); O36.5930 Maternal care for other known or suspected poor fetal growth, third trimester, not applicable or unspecified; Z3A.31 31 weeks gestation of pregnancy
CPT/HCPCS: 76816

== ENCOUNTER 2022-12-09 13:56 | Outpatient (CLI) | payer BC, SELFPAY ==
--- NOTE | 2022-12-09 14:00 | CRLHL7_ITS ---
For Patients: As a result of the Cures Act, medical imaging exams and procedure reports are released immediately into your electronic medical record. You may view this report before your referring provider. If you have questions, please contact your health care provider. INDICATION: Uterine size-date discrepancy COMPARISON: 11/11/2022 TECHNIQUE: Real time krishnamurthy scale imaging of the fetus was performed. FINDINGS: Sonographic imaging demonstrates a single living intrauterine gestation. Fetus demonstrates a regular cardiac rate of 143 beats per minute. Fetus has a vertex position. The placenta lies left posterior. Amniotic fluid volume appears normal and there is a single deepest vertical pocket: 6.3 cm. The estimated weight is 2552gm which lies at the 21st %. On the prior OB ultrasound exam dated 11/11/2022 the estimated weight was at the 18th%. BPD 15th percentile. HC 4th percentile. AC 32nd percentile. FL 15th percentile. The HC/AC ratio measures 1.00 range (0.93-1.11). IMPRESSION: Sonographic gestational age 34 weeks 6 days and sonographic due date of 01/14/2023. Sonographic age is 9 days behind the clinical age. Estimated weight 21st percentile. Abdominal circumference 32nd percentile. Dictated by Vern Das MD @ 12/10/2022 11:17:17 AM (Electronically Signed)
== END 2022-12-09 13:57 | disposition home or self-care (01) ==
LOC: US 13:57
PROVIDERS: PCP Nurse Practitioner Family; Visit Provider Advanced Practice Midwife
DX: O36.5930 Maternal care for other known or suspected poor fetal growth, third trimester, not applicable or unspecified (principal); Z3A.34 34 weeks gestation of pregnancy
CPT/HCPCS: 76816; 87081; 87653

== ENCOUNTER 2022-12-24 16:41 | Outpatient (CLI) | payer BC, SELFPAY ==
[2022-12-24 16:55] VITALS: PULSE 73; O2SAT 98
[2022-12-24 17:01] VITALS: BP 116/79; PULSE 68
[2022-12-24 17:14] VITALS: RESP 16; TEMP 36.9
[2022-12-24 17:33] LABS: Amnisure Rom* Negative
--- NOTE | 2022-12-24 18:16 | PC.OBNST ---
NST Note NST Note Start: 12/24/22 16:48 Freq: ONCE Status: Active Protocol: Document 12/24/22 18:14 WK (Rec: 12/24/22 18:16 WK [id number]) NST Note 1 Para (# of births) 0 EDC 01/05/23 Gestational Age In Weeks & Days 38 Weeks & 2 Days Patient Presented with Complaint(s) of Leaking fluid Reactive Yes RN Jessica RNC Date 12/24/22 Reactive Yes RN Maru RNC Date 12/24/22 OB NST charge Yes Complete NST Note via Write Note Yes The provider's electronic signature indicates the NST is reactive/appropriate for gestational age. *Note to provider: If an addendum is required, open the patient's chart and click on the note under the Nurse/Allied Health tab.
== END 2022-12-24 17:59 | disposition home or self-care (01) ==
LOC: OB OUT 16:41 → OB 16:41
PROVIDERS: PCP Nurse Practitioner Family; Visit Provider Advanced Practice Midwife
DX: Z34.93 Encounter for supervision of normal pregnancy, unspecified, third trimester (principal); Z3A.38 38 weeks gestation of pregnancy
CPT/HCPCS: 59025; 84112; 99213

== ENCOUNTER 2023-01-12 04:22 | Inpatient (IN) | payer BC, SELFPAY ==
[2023-01-12] VITALS (51 sets, daily range): BP systolic 91–187; BP diastolic 52–85; PULSE 60–95; RESP 15–18; TEMP 36.5–37.6; O2SAT 98–100; BMI 25.1
[2023-01-12 05:22] LABS: Amnisure Rom* Negative
[2023-01-12] MEDS: miSOPROStoL 25 MCG/0.25 TABLET VAGINAL (05:59)
--- NOTE | 2023-01-12 08:52 | P.LDBA_ITS ---
Subjective History of Present Illness Date Seen: 01/12/23 Narrative: Grecia is a 27 year old at 41 0/7 weeks gestation being admitted to Labor and Delivery for induction of labor for post-term . She presented to triage early this morning for rule out SROM, this was negative but it was elected to keep her and start her induction. Her full history and physical was dictated by RAJINDER Richards on 12/15/2022. Please see this for details. Specific Issues/Plans HB: [place] H&P 12/15/22 by Jacqui Silverio CNM 1. Enlarged Pulmonary artery, pulmonary valve dysplasia, heart murmur Following cardiology at [place] - see [facility] notes, recent maternal echo, EKG, and holter WNL in Mar/Apr 2022 WNL. They state not clinically significant for . Genetic screening: [id number] negative Referral to perinatology: Normal echo. Normal anatomy scan. Posterior placenta, no previa. EFW 35%. No further follow up needed 2. Hypotension Workup with cardiology, on hold until after Avid runner 3. O neg Rhogam at 28weeks: received 4. Measuring small for dates at 24 weeks - level II, EFW 35% -growth US at 28 weeks-EFW 32%, BPD 7%, HC 3%, AC 65%, FL 14% -growth US at 32 weeks- EFW 18%, BPD 14%, HC 6%,AC 29%, FL 17% -growth US at 36 weeks- EFW 21%, BPD 15%, HC 3.5%, AC 32%, FL 15% 5. Christian breech at 32 weeks. (resolved) Growth at 36 weeks- vertex!. OB - Problem Based A/P Additional Plan (1) Encounter for induction of labor: Status: Acute (2) Heart murmur: Status: Chronic (3) Post term , 41 weeks: Status: Acute (4) Rh negative status during : Status: Acute Plan ASSESSMENT:? 27 yo at 41 0/7 weeks gestation? complicated by:?Enlarged Pulmonary artery, pulmonary valve dysplasia, heart murmur, Hypotension, O neg, breech at 32 weeks (RESOLVED) Labor type: Induced, not in labor? Category 1 FHR pattern.?? Labor complicated by: none? GBS negative? ? PLAN:? 1. Routine intrapartum cares as ordered. Continue with expectant management? 2. Monitoring per policy, continuous? 3. Planning epidural. Candidate for analgesia of choice when desired.?? 4. Patient encouraged to reposition and ambulate to promote physiologic labor and .? 5. Anticipate ? Delivery/Labor/Induction Plan Plan: induction Induction method: per misoprostol protocol OB Exam Physical Exam Vital signs: Temp Pulse Resp BP 98.4 F 85 15 127/80 01/12/23 04:31 01/12/23 04:31 01/12/23 04:31 01/12/23 04:31 Narrative: Vitals Reviewed Constitutional:? Alert and oriented x3 HEENT:? Normocephalic, atraumatic Neck:? Supple Lungs:? Clear to auscultation bilaterally Heart:? Regular rate and rhythm, loud systolic murmur, rub or gallop Abdomen:? Soft, nontender, and gravid. Vertex by Mau's, confirmed with cervical exam. Extremities:? No edema or erythema Cervix: 1 cm/60%/-3 station/vertex NST: 135 bpm/moderate variability/15x15 accelerations/no decelerations/occ asional contractions Detailed Labor and Delivery Exam Patient Gravid: Yes Fetus (Single) Amniotic Membrane Status: intact
[2023-01-12] MEDS: LACTATED RINGERS 1000 ML 1,000 ML 900 ML IV (11:31)
[2023-01-12] MEDS: LIDOCAINE 2% (PF) 5 ML VIAL EPIDURAL (12:15)
[2023-01-12] MEDS: ROPIVACAINE 0.2% 100 ml 100 ML 12 MG EPIDURAL ×2 (12:31→19:28)
--- NOTE | 2023-01-12 13:15 | PM.ANBPRC ---
[facility] Medical History Ulnar nerve compression ?G56.20 - Lesion of ulnar nerve, unspecified upper limb (ICD-10) Hypotension ?I95.9 - Hypotension, unspecified (ICD-10) History of Holter monitoring ?Z98.890 - Other specified postprocedural states (ICD-10) Surgical History History of decompression of ulnar nerve ?Z98.890 - Other specified postprocedural states (ICD-10) Family History Mother No problems noted. Father No problems noted. Maternal Grandfather Diabetes Alcohol dependence Paternal Grandmother No problems noted. Paternal Grandfather Kidney disease Maternal Grandmother No problems noted. Brother No problems noted. 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 Special Diet: Denies Ok with a blood transfusion: yes Culture or anabaptist beliefs: denies RISK FACTORS Exercise Times/wk: Running, 5x per week Depression/Anxiety: Denies Seat Belt Use: Routinely Smoking: Denies past/present Alcohol/day: Denies while ; rare Caffeine: coffee, not currently as she can't tolerate Drug Use: Denies past/present Chicken Pox: vaccinated MRSA: Denies What is your current living situation?: I presently have a place to live Problems where you live: no known problems In the past 12 months, utilities in danger of being shut off: no In past 12 months, lack of transportation kept you from medical appts, meetings, work, or getting things needed for daily living: no In the past 12 mos, have been you worried that your food would run out before you had money to buy more?: never true In the past 12 mos, the food you bought just didn't last and you didn't have money to buy more?: never true Smoking Status: Never smoker Do you use any of these nicotine containing products: None Second hand tobacco smoke exposure: No How often do you have a drink containing alcohol: monthly or less How often do you have six or more drinks on one occasion: Never AUDIT-C Alcohol total score: 1 Non-prescribed substance use: denies use How often does anyone, including family, friends and others, physically hurt you: never How often does anyone, including family, friends and others, insult or talk down to you: never How often does anyone, including family, friends and others, threaten you with harm: never How often does anyone, including family, friends and others, scream or curse at you: never Little interest or pleasure in doing things: not at all Feeling down, depressed, or hopeless: not at all Meds Home Medications and Allergies Home Medications Medication Instructions Recorded Confirmed Type prenat.vits,pepper,uob-uped-jimzr 1 tab PO QDAY 06/23/22 01/05/23 History ascorbate calcium (vitamin C) 500 500 mg PO QDAY 11/25/22 01/05/23 History mg tablet Allergies Allergy/AdvReac Type Severity Reaction Status Date / Time No Known Drug Allergies Allergy Verified 01/05/23 13:13 Results Labs Labs: Laboratory Results - last 24 hr 01/12/23 04:40 Membrane Rupture Negative Vital Signs Vital Signs: Last Vital Signs Temp 98.5 F 01/12/23 12:38 Pulse 63 01/12/23 13:05 Resp 18 01/12/23 12:38 BP 103/57 L 01/12/23 13:05 Pulse Ox 99 01/12/23 12:43 Weight: 75.024 kg Height: 172.72 cm Anesthesia Procedures Epidural Insertion Patient Location: OB Start Time: 12:05 Stop Time: 12:35 Start Date: 01/12/23 Stop Date: 01/12/23 Reason for Block: procedure for pain Patient Position: sitting Performed By: Tan Milner Preanesthetic Checklist: IV checked, risks and benefits discussed, monitors and equipment checked, pre-op evaluation, timeout performed and anesthesia consent Prep: chlorhexidine gluconate Monitoring: blood pressure monitoring, continuous pulse oximetry and heart rate Approach: midline Vertebral Space: lumbar (1-5) Epidural Technique: CAMPBELL saline Needle Type: Tuohy needle Injection Technique: continuous catheter Needle gauge: 17 Needle Length (cm): 10 cm Needle Insertion Depth (cm): 5 Catheter Gauge: 19 Catheter Type: multi-orifice Catheter at skin depth (cm): 11 Test Dose Result: negative and lidocaine 1.5% with epinephrine 1 to 200,000
[2023-01-12] MEDS: ONDANSETRON 2 MG/ML inj 4 MG IV (13:23)
[2023-01-12] MEDS: LACTATED RINGERS 1000 ML 1,000 ML 125 ML IV (13:24)
[2023-01-12] MEDS: OXYTOCIN 30 unit/500 ML in NS 30 UNIT/500 ML BAG 300 UNIT IVPB (17:58)
[2023-01-12] MEDS: ESTROGENS, CONJUGATED VAGINAL 0.625 MG/G CREAM 1 APPLIC VAGINAL (20:09)
--- NOTE | 2023-01-12 20:38 | PM.OBCN1 ---
OB - CN: HPI Date of Consult Time Seen by Provider: 19:15 Date Seen: 01/12/23 Patient: [facility] Patient Consult date: 01/12/23 Requesting Physician: Rebecca Alicia CNM Primary Care Provider: Genie Serrano, [place]ER[place], LION TAMER Consult Narrative Narrative: The patient is a 27 year old G 1, now P1 at 41.0 weeks gestation that was admitted to the [facility] on 01/12/23 for IOL due to postdate. She had a spontaneous vaginal delivery. I was consulted for has a laceration. Third degree laceration Perineum inspected and a 3B laceration was noted. The patient was given a dose of 2g of cefoxitin, rectal exam performed to confirm tear and internal anal sphincter identified and intact with greater than 50% avulsion of the external anal sphincter. Operators? gloves changed. Attention was then turned to the anal sphincter. Kari clamps were placed on the disrupted edges, and 2-0 vicryl used to reapproximate the sphincter in an interrupted fashion with four stitches. Before these were tied down a rectal exam confirmed no retained sutures in the rectum and good sphincter tone with tightening of the sutures. Additional deep stitches were placed proximal to the sphincter to provide for a more substantial perineal body (all the while with a finger in the rectum). The remainder of the tear was repaired as a typical 2nd degree laceration with a running 2-0 vicryl stitch. There was no involvement of the anal mucosa. The skin was closed with 2-0 vicryl. She was also note to have very superficial abrasion of the bilateral labia majora and periurethral area. These do not warrant stitches and will heal well on their own. Advised patient on ramesh bottle use for voiding to decreased discomfort. Vaginal packing soaked in Premarin was placed due to amount of bleeding during the repair. Additionally, patient intends to breastfeed exclusively. She will benefit from the Premarin due to anticipated hypo-estrogenic state while . Vaginal packing to be removed in the a.m. tomorrow. End of vaginal packing tagged to patient's left leg. Order placed. Following the repair, she was counseled on the procedure and precautions for return to care. Strong bowel regimen instructions reviewed. A rectal exam was performed at the beginning and end of repair and was without e/o suture through rectum or sphincter injury. Mom and baby doing well in recovery. QBL during repair was 500 cc History History 1 Elective abortions Para 0 Spontaneous abortions Hx # Term Pregnancies Ectopic pregnancies Hx # Pregnancies Multiple births Number of Living Children 0 Labs GBS status: negative OB Labs: Lab Assessment Start: 01/12/23 04:27 Freq: ONCE Status: Complete Protocol: PC.OBGBS Activity Type Activity Date Activity User E-sign Co-sign Detail Recorded Client Recorded Date Recorded By Document 01/12/23 05:09 ROMA [id number] 01/12/23 05:09 ROMA 01/12/23 05:09 Lab Assessment GBS Status negative Are Labs Available Yes Maternal Blood Type O Maternal RH Factor Negative Evaluate Maternal Rubella Immune Status Immune Hepatitis B Surface Antigen Negative Maternal HIV Status Negative Maternal Syphillis (RPR) Status Negative [facility] Medical History Ulnar nerve compression ?G56.20 - Lesion of ulnar nerve, unspecified upper limb (ICD-10) Hypotension ?I95.9 - Hypotension, unspecified (ICD-10) History of Holter monitoring ?Z98.890 - Other specified postprocedural states (ICD-10) Surgical History History of decompression of ulnar nerve ?Z98.890 - Other specified postprocedural states (ICD-10) Family History Mother No problems noted. Father No problems noted. Maternal Grandfather Diabetes Alcohol dependence Paternal Grandmother No problems noted. Paternal Grandfather Kidney disease Maternal Grandmother No problems noted. Brother No problems noted. 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 Special Diet: Denies Ok with a blood transfusion: yes Culture or pentecostalism beliefs: denies RISK FACTORS Exercise Times/wk: Running, 5x per week Depression/Anxiety: Denies Seat Belt Use: Routinely Smoking: Denies past/present Alcohol/day: Denies while ; rare Caffeine: coffee, not currently as she can't tolerate Drug Use: Denies past/present Chicken Pox: vaccinated MRSA: Denies What is your current living situation?: I presently have a place to live Problems where you live: no known problems In the past 12 months, utilities in danger of being shut off: no In past 12 months, lack of transportation kept you from medical appts, meetings, work, or getting things needed for daily living: no In the past 12 mos, have been you worried that your food would run out before you had money to buy more?: never true In the past 12 mos, the food you bought just didn't last and you didn't have money to buy more?: never true Smoking Status: Never smoker Do you use any of these nicotine containing products: None Second hand tobacco smoke exposure: No How often do you have a drink containing alcohol: monthly or less How often do you have six or more drinks on one occasion: Never AUDIT-C Alcohol total score: 1 Non-prescribed substance use: denies use How often does anyone, including family, friends and others, physically hurt you: never How often does anyone, including family, friends and others, insult or talk down to you: never How often does anyone, including family, friends and others, threaten you with harm: never How often does anyone, including family, friends and others, scream or curse at you: never Little interest or pleasure in doing things: not at all Feeling down, depressed, or hopeless: not at all Meds Home Medications and Allergies Home Medications Medication Instructions Recorded Confirmed Type prenat.vits,pepper,xod-rype-xljkl 1 tab PO QDAY 06/23/22 01/12/23 History ascorbate calcium (vitamin C) 500 500 mg PO QDAY 11/25/22 01/12/23 History mg tablet Allergies Allergy/AdvReac Type Severity Reaction Status Date / Time No Known Drug Allergies Allergy Verified 01/05/23 13:13 OB - H&P: Exam Physical Exam: Vital signs: Temp Pulse Resp BP Pulse Ox 98.7 F 66 18 120/61 99 01/12/23 17:45 01/12/23 19:50 01/12/23 19:30 01/12/23 19:50 01/12/23 12:43 OB - CN: A/P Assessment and Plan (1) Encounter for induction of labor: Status: Acute (2) Heart murmur: Status: Chronic (3) Post term , 41 weeks: Status: Acute (4) Rh negative status during : Status: Acute
[2023-01-12] MEDS: cefOXitin 2 GM in 0.9 % SODIUM CHLORIDE Mini-bag 100 ML IVPB (21:02)
--- NOTE | 2023-01-12 22:55 | W.PM.OBVAGDE ---
OB Procedure Vag Delivery Mother Details Mother Details: Grecia is a 27 year-old, 1, Para 1, admitted on 01/12/23 at 41.0 weeks gestation. : 1 Para: 1 Weeks Gestation: 41.0 Admission Date: 01/12/23 Additional Details Amniotic Membrane Status: SROM Amniotic Membrane Rupture Date: 01/12/23 Amniotic Membrane Rupture Time: 14:00 Amniotic Membrane Fluid Description: Clear Analgesia/Anesthesia Type: Epidural Waterbirth: No Pitcoin: Yes (AMTSL) Intrapartal Events: Labor Induction Induction Method: per misoprostol protocol Labor Onset: 12:00 Complete: 17:00 Pushin:13 Heart: heart tones during second stage were category II with repetitive variables during contractions that returned to baseline between. Delivery Details Delivery Date: 01/12/23 Delivery Time: 17:56 Gender: Female Viability: Alive; Heart Rate Present Position at Delivery: OA Delivery Details: Patient was admitted for induction of labor for post dates. She received 1 dose of cytotec then spontaneously labored on her own. SROM noted at 1400 with clear fluid. Patient was complete at 1700 and pushing at 1713. A gush of dark red blood occurred just prior to delivery. of a viable male at 1756 in right tilt on the bed. Vertex delivered OA. No nuchal cord or shoulder. Body delivered easily and without incident. passed to mothers abdomen with a vigorous cry. Cord was clamped and cut at > 5 minutes. APGARS were 9 at one minute and 9 at five minutes respectively. Mouth was bulb suctioned. Intact placenta with a 3 vessel cord delivered spontaneously at 1804. Some dark blood present and placenta is suspicious for abruption, sent to pathology. Fundus firm. After delivery of placenta, provider was called to another room with plan to return for repair. Dr. Mendoza was called to assess and repair due to CNM being in another delivery. See her note for further details of her 3b laceration repair. QBL 500 cc. Mother and baby stable; mother plans to breastfeed. weight pending. Cord blood not collected at time of delivery by provider. RN was able to collect from placenta after. 1 Minute Interval Total Score: 9 5 Minute Interval Total Score: 9 Additional Details Shoulder Dystocia: No Placenta Delivery Time: 18:04 Placental Delivery Description: Spontaneous Procedure Done: Global Blood Loss: 500 Laceration: Perineal - 3rd Degree (Repaired by Dr. Mendoza, see her note for additional documentation) Blood Loss Measurement Type: QBL Bakri Used: No Cord Vessel Description: 3 Vessels Event Summary Status: Mother and were stable after delivery. Disposition: floor
[2023-01-12] MEDS: IBUPROFEN 600 MG TABLET PO (23:35)
[2023-01-12] MEDS: SENNOSIDES/DOCUSATE TABLET 1 TAB PO (23:36)
[2023-01-13 05:00] VITALS: BP 99/60; PULSE 73; RESP 16; TEMP 36.8; O2SAT 97
[2023-01-13] MEDS: IBUPROFEN 600 MG TABLET PO ×3 (05:20→22:52)
[2023-01-13 06:39] LABS: Hemoglobin* 10.1 gm/dL (12.0-16.0)
[2023-01-13] MEDS: SENNOSIDES/DOCUSATE TABLET 1 TAB PO ×2 (08:07→22:52)
[2023-01-13 08:19] VITALS: BP 135/81; PULSE 78; RESP 16; O2SAT 99
--- NOTE | 2023-01-13 08:39 | PM.OBPNVD1 ---
OB - PN:Subj Subjective Date Seen: 01/13/23 Patient comments OB post-: no complaints, pain well controlled, perineal pain, tolerating diet and flatus present [place] infant status: and doing well feeding status: exclusively Narrative: Complications:? 3rd degree laceration? The patient feels well.? The pain is well controlled with current medications.? She has no new complaints.? Urinary output is adequate and she is voiding without difficulty.? Has a good appetite, is tolerating a general diet, is passing flatus, and has not had a bowel movement.? Has small amount of rubra lochia.?Vaginal packing was removed without difficulty. She is ambulating well.?She is and denies complications or concerns. OB - PN: Obj Exam Physical Exam: Vital signs: Temp Pulse Resp BP Pulse Ox O2 Del Method 98.2 F 78 16 135/81 99 Room Air 01/13/23 05:00 01/13/23 08:19 01/13/23 08:19 01/13/23 08:19 01/13/23 08:19 01/13/23 08:19 Narrative: GENERAL APPEARANCE:? normal affect, alert, no distress? MOOD:? appropriate? CHEST:? clear to auscultation and percussion? HEART:? regular rate and rhythm. No murmur heard. ABDOMEN:? soft, non-tender the uterine fundus is U/2 and is appropriate for the stage of recovery.? PERINEUM:? mild edema of the perineum, there is a 3rd degree that is healing well.? EXTREMITIES:? normal and no edema? 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 cares.? 2. Anticipate discharge tomorrow.? Plan day: 1 Plan: routine care
[2023-01-13 12:04] VITALS: BP 108/68; PULSE 69; RESP 16; TEMP 36.6; O2SAT 98
[2023-01-13 15:58] VITALS: BP 103/62; PULSE 70; RESP 16; TEMP 36.4; O2SAT 97
[2023-01-13] MEDS: BENZOCAINE/MENTHOL SPRAY 85 GM AEROSOL 1 APPLIC TOPICAL (16:23)
[2023-01-13] MEDS: polyethylene glycoL 3350 17 GM PACK PO (16:24)
[2023-01-13 19:40] VITALS: BP 119/83; PULSE 68; RESP 18; TEMP 37.2; O2SAT 97
[2023-01-14 04:49] VITALS: BP 113/66; PULSE 87; RESP 18; TEMP 37.1; O2SAT 99
[2023-01-14 08:08] VITALS: BP 111/74; PULSE 77; RESP 18; TEMP 36.6; O2SAT 98
[2023-01-14] MEDS: polyethylene glycoL 3350 17 GM PACK PO (08:22)
[2023-01-14] MEDS: SENNOSIDES/DOCUSATE TABLET 1 TAB PO (08:22)
--- NOTE | 2023-01-14 08:37 | P.DS_ITS ---
DS: Providers Provider Date Seen: 01/14/23 Date of admission: 01/12/23 04:22 Primary care physician: Genie Serrano, PUBLIC RELATIONS OFFICER, EDITOR NEWSPAPER Admitting Clinician: Genie Stewart CNM Attending Physician on discharge: Selene Silveira CNM Date of Discharge: 01/14/23 DS: Diagnosis Discharge Diagnosis (1) care following vaginal delivery: Status: Acute (2) Lactating mother: Status: Acute (3) Type 3b perineal laceration during delivery: Status: Acute Exam Narrative: Exam Narrative: GENERAL APPEARANCE: ?normal affect, alert, no distress MOOD: ?appropriate HEENT: normocephalic, neck supple, full ROM CHEST: ?Symmetrical chest wall movement. ?Normal respiratory effort. ?Clear to auscultation HEART: ?regular rate and rhythm ABDOMEN: ?soft, non-tender. Uterine fundus is firm, 1 below Umbilicus, Midline and is appropriate for the stage of recovery. ?Bowel sounds present. PERINEUM: ?mild edema of the perineum, there is a 3rd degree laceration that is healing well. EXTREMITIES: ?normal and no edema Const: Vital Signs, click to edit/add: Vital Signs - 24 hr 01/13/23 12:04 01/13/23 15:58 01/13/23 19:40 Temperature 97.8 F 97.6 F 98.9 F Pulse Rate [Pulse Oximeter] 69 70 68 Respiratory Rate 16 16 18 Blood Pressure [Le ft Arm] 108/68 103/62 119/83 Pulse Oximetry 98 97 97 Oxygen Delivery Me thod Room Air Room Air Room Air 01/14/23 04:49 01/14/23 08:08 Temperature 98.7 F 98 F Pulse Rate [Pulse Oximeter] 87 77 Respiratory Rate 18 18 Blood Pressure [Le ft Arm] 113/66 111/74 Pulse Oximetry 99 98 Oxygen Delivery Me thod Room Air Room Air Documenting provider has reviewed patient's vital signs: yes OB - DS: Summary Hospital Course Hospital Course: Grecia is a 27 y.o. G 1 P 1 who was admitted to [facility] for induction of labor for postdates. ?She had an NVD complicated by a 3b perineal tear. The patient feels well. ?The pain is well controlled with current medications. ?She has no new complaints. ?She is breast feeding and reports things are going well. the patient has done well.? Vitals have been stable.? She has remained afebrile.? Has a good appetite, is tolerating a general diet. ?She is voiding without difficulty.? She is passing gas and has not yet had a bowel movement.? She is ambulating and denies any dizziness.? Has small amount of rubra lochia. She is undecided about prevention. plan: Discharge home with baby. Follow up in 2 weeks and 6 weeks. , may see if needed Hgb 10.1. Peripartum Data Infant delivery method: Vaginal Laceration description: Perineal - 3rd Degree complications: none [place] Infant Gender: Female Discharge Plan: Home Status at Discharge Functional status at discharge: independent ambulation Overall status at discharge: patient is progressing back to baseline Time Spent with Patient Time attestation: Total time spent providing and/or coordinating discharge services: Time spent: Less than 30 minutes Discharge Plan Discharge Disposition: Home, Self-Care Date of Admission: 01/12/23 04:22 Attending Provider on Discharge: Selene Silveira Primary Care Provider: Genie Serrano Condition: Stable Anticipated Discharge Date/Time: 01/14/23 12:00 Discharge Medications: New acetaminophen 500 mg Tablet 1,000 mg PO Q6H PRNQty: 0 0RF sennosides-docusate sodium [Stool Softener-Laxative] 8.6-50 mg Tablet 1 tab PO BID Qty: 90 3RF ibuprofen 600 mg Tablet 600 mg PO Q6H PRNQty: 60 0RF Continued prenat.vits,pepper,[id number] Tablet 1 tab PO QDAY ascorbate calcium (vitamin C) 500 mg tablet 500 mg PO QDAY Discharge Orders: Discharge Order (Routine); Ordered 01/14/23 Ordered By: Selene Silveira Patient Education: OB Over the Counter Medication Information, OB Vaginal/Breast Feeding Additional Instructions: Discharge instructions were reviewed with the patient including signs and symptoms of infection and home going medications Nothing vaginally for 6 weeks: no tampons or intercourse Off Work or School for 6 weeks 2-week visit: discuss infant feeding concerns, review control options and screen for anxiety/depression. 6-week visit for an annual exam. consultation services are available to all mothers and babies for the first year after delivery.? To make an appointment, please call [phone]. Activity Level: Activity as Tolerated Discharge Diet: Regular Follow Up Appointments: Genie Serrano CNP, EDITOR NEWSPAPER [Primary Care Provider] - [facility] [Provider Group] Forms: [employer] Info Instructions
== END 2023-01-14 10:20 | disposition home or self-care (01) | DRG 560 ==
PROVIDERS: Obstetrics & Gynecology; Admitting Provider Advanced Practice Midwife; PCP Nurse Practitioner Family; Visit Provider Advanced Practice Midwife
DX: O48.0 Post-term pregnancy (principal); Z3A.41 41 weeks gestation of pregnancy; O70.22 Third degree perineal laceration during delivery, IIIb; O99.42 Diseases of the circulatory system complicating childbirth; I95.9 Hypotension, unspecified; R01.1 Cardiac murmur, unspecified; I37.8 Other nonrheumatic pulmonary valve disorders; O26.893 Other specified pregnancy related conditions, third trimester; Z67.41 Type O blood, Rh negative; Z37.0 Single live birth
CPT/HCPCS: 01967; 36415; 59200; 84112; 85018; 88307; A9270; J0694; J2371; J2405; J2795; J7120

== ENCOUNTER 2025-01-05 14:29 | Outpatient (CLI) | payer BC, SELFPAY | END 2025-01-05 14:30 | disposition home or self-care (01) | LOC: FRMREF 14:29 | PROVIDERS: PCP Nurse Practitioner Family; Visit Provider Registered Nurse | DX: N97.9 Female infertility, unspecified (principal); Z13.29 Encounter for screening for other suspected endocrine disorder | CPT/HCPCS: 84443 ==